=== PATIENT | male | born 1955 | race Caucasian/White ===

== ENCOUNTER → 2024-02-12 10:52 | Outpatient (REF) | payer BC, SELFPAY | LOC: HWRAD 10:52 | PROVIDERS: ATTENDING PHYSICIAN Family Medicine | DX: M25.512 Pain in left shoulder (principal) | CPT/HCPCS: 73030 ==

== ENCOUNTER 2024-02-16 14:04 | Emergency (ER) | payer BC, SELFPAY ==
[2024-02-16 14:24] VITALS: BP 133/84
--- NOTE | 2024-02-16 14:27 | ED.GENMED ---
History of Present Illness
General
Chief Complaint: Skin Surface Trauma
Source: patient
Exam Limitations: none
Time Seen by Provider: 02/16/24 14:27
Nursing documentation reviewed up to this point in time: agreed with
History of Present Illness
History of Present Illness:
Patient presents to ED for evaluation secondary to left forearm injury, which occurred while he was at work this afternoon. 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
scratched by the patient with her nail. Denies any other injuries. Denies loss of sensation or weakness. Denies active bleeding. Patient's tetanus vaccination status is up-to-date.
Past History
Past History
ED Past Medical History: None
ED Past Surgical History: None
Social History
Tobacco: Non-smoker
Drug: None
Personal:
Living: with family
Employment: Employed ( [employer])
Family History
Family History: Other
Review of Systems
Review of Systems
Allergies reviewed?: Yes
All Other Systems: ROS reviewed and negative except as documented in HPI and ROS
Constitutional: Reports no symptoms
EENT: Reports no symptoms
Musculoskeletal: Reports no symptoms
Skin: Reports other (forearm laceration)
Neurological: Reports no symptoms
Phy Exam
Physical Exam
Physical Exam:
Physical Exam
General: no apparent distress, not acutely ill. afebrile
Head: nc/at. eomi
Neck: supple. normal range of motion.
Neuro: alert and oriented. no focal neurological deficits
Skin: multiple superficial laceration noted over volar surface of left mid-forearm, without active bleeding.
Psychiatric: well kept. interactive and cooperative
Extremities: no edema. no calf tenderness.
Course
Vital Signs
Initial and Last Documented VS:
Initial Vital Signs
Temp Pulse Resp BP Pulse Ox
98.0 F 95 16 133/84 96
02/16/24 14:24 02/16/24 14:24 02/16/24 14:24 02/16/24 14:24 02/16/24 14:24
Last Documented Vital Signs
Temp Pulse Resp BP Pulse Ox
98.0 F 95 16 133/84 96
02/16/24 14:24 02/16/24 14:24 02/16/24 14:24 02/16/24 14:24 02/16/24 14:24
MDM/Problems Addressed
MDM/Problems Addressed:
Local wound care provided and dressing applied afterwards. No indication for any suture placement. Pt will f/u with occupational health next week.
*Critical Care Note
Total Time (30-74mins, 75-104mins- exclusive of procedures): Not Applicable
ED Attending Note
-
Portions of this chart may have been created with voice recognition software.� Occasional wrong word or��sound alike� substitutions may have occurred due to the inherent limitations of voice recognition software.
Discharge Plan
Departure
Patient Disposition: Home (Routine Discharge)
Date of Disposition: 02/16/24
Time of Disposition: 14:34
Patient with high blood pressure during this ER visit?: Yes
Discharge Problem:
Superficial laceration
Instructions: Wound Care (DC), Laceration
Prescriptions:
No Action
potassium [Potassium-99] 99 MG tablet
99 mg PO HS
magnesium oxide 500 MG tablet
500 mg PO HS
cholecalciferol (vitamin D3) 1,000 UNITS tablet
1,000 units PO HS
[id number]-[id number] [Triple Antibiotic] 14 GM ointment
1 applic TP DAILY
albuterol sulfate 1 PUFF HFA aerosol inhaler
2 puff inhalation R [id number] PRN (Reason: sob from exercise)
clotrimazole [Clotrimazole AF] 28 GM cream
1 applic TP HS
cyanocobalamin (vitamin B-12) 1,000 MCG tablet
2,000 mcg PO DAILY Qty: 30 0RF
ferrous sulfate [FeroSul] 325 MG tablet
325 mg PO DAILY Qty: 30 0RF
amoxicillin-pot clavulanate 1 TABLET tablet
1 tab PO Q12 Qty: 14 0RF
Referrals:
Jonathan Mancera, [Family Provider] -
Activity Restrictions/Additional Instructions:
As discussed, please follow-up with occupational health for reevaluation next week.
Interventions
Interventions:
*Risk Screen - Suicide Last Done: 02/16/24 14:25
*General Assessment Last Done: 02/16/24 14:24
*Neglect/Abuse Screening Last Done: 02/16/24 14:25
*ED COVID-19 Vaccine History Last Done: 02/16/24 14:24
ED-Skin Assessment Last Done: 02/16/24 14:26
Discharge Date and Time
Print Language: [id number]
== END 2024-02-16 15:30 | disposition home or self-care (01) ==
LOC: EMR 14:04
PROVIDERS: EMERGENCY PHYSICIAN Emergency Medicine; FAMILY PHYSICIAN Family Medicine
DX: S51.812A Laceration without foreign body of left forearm, initial encounter (principal); W50.4XXA Accidental scratch by another person, initial encounter; Y93.89 Activity, other specified; Y92.239 Unspecified place in hospital as the place of occurrence of the external cause; Y99.0 Civilian activity done for income or pay; R03.0 Elevated blood-pressure reading, without diagnosis of hypertension; J45.909 Unspecified asthma, uncomplicated; K90.0 Celiac disease; D64.9 Anemia, unspecified
CPT/HCPCS: 99282

== ENCOUNTER → 2024-04-05 07:35 | Outpatient (REF) | payer BC, SELFPAY ==
[2024-04-05 08:51] LABS: Hematocrit 38.6 % (39.0-52.0); Hemoglobin 13.7 g/dL (13.0-18.0); Mean Corp Hgb Conc. 35.5 g/dL (33.0-37.0); Mean Corpuscular Hgb 31.6 pg (27.0-31.0); Mean Corpuscular Volume 89.1 fL (80.0-94.0); Mean Platelet Volume 9.7 fL (7.4-10.4); Platelet Count 208 10^3/uL (130-400); Red Blood Cell Count 4.33 10^6/uL (4.70-6.10); Red Cell Dist. Width 12.5 % (11.5-14.5); White Blood Cell Count 3.7 10^3/uL (4.8-10.8)
[2024-04-05 09:12] LABS: Blood Urea Nitrogen 26 mg/dl (9-20); Calcium 9.4 mg/dl (8.4-10.2); Carbon Dioxide 28 mmol/L (22-30); Chloride 104 mmol/L (98-107); Glucose 79 mg/dl (70-99); Iron 100 ug/dl (49-181); Magnesium 2.2 mg/dl (1.6-2.3); Potassium 4.9 mmol/L (3.5-5.1); Sodium 137 mmol/L (135-145); eGFR > 60.00
[2024-04-05 09:27] LABS: Vitamin D, 25-OH*** 44.1 ng/mL (30-80)
[2024-04-05 09:40] LABS: PSA, Total - Screen 2.66 ng/ml (0.0-4.0)
[2024-04-05 09:44] LABS: Ferritin 30.7 ng/ml (17.9-464.0)
[2024-04-05 09:58] LABS: Vitamin B12 684 pg/ml (239-931)
[2024-04-05 12:05] LABS: Glycohemoglobin (HgbA1c) 5.2 % (4.0-5.6)
== END ==
LOC: REG 07:35
PROVIDERS: ATTENDING PHYSICIAN Student in an Organized Health Care Education/Training Program
DX: K90.0 Celiac disease (principal)
CPT/HCPCS: 36415; 80048; 82306; 82607; 82728; 83036; 83540; 83735; 85027; G0103

== ENCOUNTER → 2024-06-03 06:40 | Outpatient (REF) | payer BC, SELFPAY ==
[2024-06-03 07:54] LABS: % Basophils 0.8 % (0-2); % Eosinophils 4.7 % (0-6); % Immature Granulocytes 0.3 % (0-0.5); % Lymphocytes 25.3 % (20.5-51.1); % Monocytes 8.9 % (1.7-9.3); Absolute Eosinophils 0.2 10^3/uL (0-0.7); Absolute Monocytes 0.3 10^3/uL (0.1-0.6); Absolute Neutrophils 2.3 10^3/uL (1.4-6.5); Hematocrit 39.4 % (39.0-52.0); Hemoglobin 13.9 g/dL (13.0-18.0); Mean Corp Hgb Conc. 35.3 g/dL (33.0-37.0); Mean Corpuscular Hgb 32.6 pg (27.0-31.0); Mean Corpuscular Volume 92.5 fL (80.0-94.0); Mean Platelet Volume 10.4 fL (7.4-10.4); Nucleated Red Blood Cells % 0 % (-); Platelet Count 176 10^3/uL (130-400); Red Blood Cell Count 4.26 10^6/uL (4.70-6.10); Red Cell Dist. Width 13.2 % (11.5-14.5); White Blood Cell Count 3.8 10^3/uL (4.8-10.8)
== END ==
LOC: REG 06:40
PROVIDERS: ATTENDING PHYSICIAN Student in an Organized Health Care Education/Training Program
DX: E61.1 Iron deficiency (principal); Z00.00 Encounter for general adult medical examination without abnormal findings; E53.8 Deficiency of other specified B group vitamins; E78.2 Mixed hyperlipidemia; K90.0 Celiac disease; Z12.5 Encounter for screening for malignant neoplasm of prostate
CPT/HCPCS: 36415; 85025

== ENCOUNTER → 2024-08-07 06:15 | Outpatient (REF) | payer BC, SELFPAY ==
[2024-08-07 07:26] LABS: % Basophils 0.5 % (0-2); % Eosinophils 5.5 % (0-6); % Immature Granulocytes 0.3 % (0-0.5); % Lymphocytes 30.1 % (20.5-51.1); % Monocytes 9.2 % (1.7-9.3); % Neutrophils 54.4 % (42.2-75.2); Absolute Eosinophils 0.2 10^3/uL (0-0.7); Absolute Lymphocytes 1.2 10^3/uL (1.2-3.4); Absolute Monocytes 0.4 10^3/uL (0.1-0.6); Absolute Neutrophils 2.1 10^3/uL (1.4-6.5); Hematocrit 42.8 % (39.0-52.0); Hemoglobin 14.5 g/dL (13.0-18.0); Mean Corp Hgb Conc. 33.9 g/dL (33.0-37.0); Mean Corpuscular Hgb 31.7 pg (27.0-31.0); Mean Corpuscular Volume 93.7 fL (80.0-94.0); Mean Platelet Volume 10.1 fL (7.4-10.4); Nucleated Red Blood Cells % 0 % (-); Platelet Count 173 10^3/uL (130-400); Red Blood Cell Count 4.57 10^6/uL (4.70-6.10); Red Cell Dist. Width 13.1 % (11.5-14.5); White Blood Cell Count 3.8 10^3/uL (4.8-10.8)
== END ==
LOC: REG 06:15
PROVIDERS: ATTENDING PHYSICIAN Student in an Organized Health Care Education/Training Program
DX: D72.9 Disorder of white blood cells, unspecified (principal)
CPT/HCPCS: 36415; 85025

== ENCOUNTER → 2024-08-26 15:57 | Outpatient (REF) | payer BC, SELFPAY | LOC: PAVMRI 15:57 | PROVIDERS: ATTENDING PHYSICIAN Specialist; FAMILY PHYSICIAN Student in an Organized Health Care Education/Training Program | DX: M25.512 Pain in left shoulder (principal) | CPT/HCPCS: 73221 ==

== ENCOUNTER → 2024-09-30 12:01 | Outpatient (REF) | payer BC, SELFPAY | LOC: CLAB 12:01 | PROVIDERS: Pathology Anatomic Pathology & Clinical Pathology; ATTENDING PHYSICIAN Physician Assistant Medical | DX: L57.0 Actinic keratosis (principal) | CPT/HCPCS: 88305 ==

== ENCOUNTER → 2024-10-09 17:18 | Outpatient (REF) | payer BC, SELFPAY ==
[2024-10-09 18:06] LABS: Iron 72 ug/dl (49-181)
[2024-10-09 18:16] LABS: Percent Saturation 21 % (20-50); Total Iron Binding Capacity 330 ug/dl (261-462)
[2024-10-09 18:32] LABS: Vitamin D, 25-OH*** 28.3 ng/mL (30-80)
[2024-10-09 19:29] LABS: Vitamin B12 657 pg/ml (239-931)
[2024-10-12 00:16] LABS: EBV-EA (D) Ab IgG 63.6 U/mL (0.0-10.9); EBV-VCA IgM Antibodies <10.0 U/mL (0.0-43.9)
[2024-10-12 07:31] LABS: ANA, IgG Reflex to HEp-2 None Detected (None Detected)
== END ==
LOC: REG 17:18
PROVIDERS: ATTENDING PHYSICIAN Physician Assistant Medical
DX: E53.8 Deficiency of other specified B group vitamins (principal); K90.0 Celiac disease; E61.1 Iron deficiency; R53.83 Other fatigue; R68.83 Chills (without fever)
CPT/HCPCS: 36415; 82306; 82607; 83540; 83550; 86038; 86618; 86663; 86664; 86665

== ENCOUNTER 2024-11-21 06:16 | Day surgery (SDC) | payer BC, SELFPAY ==
[2024-11-13 09:09] LABS: Blood Urea Nitrogen 18 mg/dl (9-20); Calcium 9.2 mg/dl (8.4-10.2); Carbon Dioxide 31 mmol/L (22-30); Chloride 99 mmol/L (98-107); Glucose 85 mg/dl (70-99); Potassium 4.5 mmol/L (3.5-5.1); Sodium 135 mmol/L (135-145); eGFR > 60.00
[2024-11-13 13:37] VITALS: BMI 28.5
[2024-11-21 11:19] VITALS: BP 139/72
[2024-11-21 11:29] VITALS: BMI 28.5
[2024-11-21] MEDS: TYLENOL 1000 MG PO (11:33)
[2024-11-21] MEDS: CELEBREX 200 MG PO (11:33)
[2024-11-21] MEDS: NORMOSOL-R/PLASMALYTE-A 1000 IV (11:34)
[2024-11-21 13:26] VITALS: BP 128/64; BP 139/72
[2024-11-21 13:30] VITALS: BP 126/67
[2024-11-21 14:05] VITALS: BP 122/72
[2024-11-21 14:45] VITALS: BP 140/77
[2024-11-21 15:05] VITALS: BP 122/83
== END 2024-11-21 15:20 | disposition short-term general hospital (02) ==
LOC: SDS 06:16
PROVIDERS: ATTENDING PHYSICIAN Specialist; FAMILY PHYSICIAN Student in an Organized Health Care Education/Training Program
DX: M75.102 Unspecified rotator cuff tear or rupture of left shoulder, not specified as traumatic (principal); M75.42 Impingement syndrome of left shoulder
CPT/HCPCS: 29827; 36415; 80048; 93005; C1713

== ENCOUNTER 2024-12-24 13:12 | Outpatient (RCR) | payer BC, SELFPAY | END 2024-12-24 23:59 | disposition home or self-care (01) | LOC: RPT 13:12 | PROVIDERS: ATTENDING PHYSICIAN Physician Assistant Surgical; FAMILY PHYSICIAN Student in an Organized Health Care Education/Training Program | DX: Z47.89 Encounter for other orthopedic aftercare (principal); Z73.6 Limitation of activities due to disability; M25.512 Pain in left shoulder; M62.81 Muscle weakness (generalized); W01.0XXD Fall on same level from slipping, tripping and stumbling without subsequent striking against object, subsequent encounter | CPT/HCPCS: 97010; 97110; 97140; 97161; 97530 ==

== ENCOUNTER 2025-01-22 16:09 | Outpatient (RCR) | payer BC, SELFPAY | END 2025-01-22 23:59 | disposition home or self-care (01) | LOC: RPT 16:09 | PROVIDERS: ATTENDING PHYSICIAN Physician Assistant Surgical; FAMILY PHYSICIAN Student in an Organized Health Care Education/Training Program | DX: Z47.89 Encounter for other orthopedic aftercare (principal); M25.512 Pain in left shoulder; M62.81 Muscle weakness (generalized); Z73.6 Limitation of activities due to disability; W01.0XXD Fall on same level from slipping, tripping and stumbling without subsequent striking against object, subsequent encounter | CPT/HCPCS: 97010; 97110; 97140 ==

== ENCOUNTER 2025-02-19 18:00 | Outpatient (RCR) | payer BC, SELFPAY | END 2025-02-19 23:59 | disposition home or self-care (01) | LOC: RPT 18:00 | PROVIDERS: ATTENDING PHYSICIAN Physician Assistant Surgical; FAMILY PHYSICIAN Student in an Organized Health Care Education/Training Program | DX: Z47.89 Encounter for other orthopedic aftercare (principal); M25.512 Pain in left shoulder; M62.81 Muscle weakness (generalized); Z73.6 Limitation of activities due to disability; W01.0XXD Fall on same level from slipping, tripping and stumbling without subsequent striking against object, subsequent encounter | CPT/HCPCS: 97010; 97110; 97140 ==

== ENCOUNTER 2025-03-26 18:00 | Outpatient (RCR) | payer BC, SELFPAY | END 2025-03-26 19:10 | disposition home or self-care (01) | LOC: RPT 18:00 | PROVIDERS: ATTENDING PHYSICIAN Physician Assistant Surgical; FAMILY PHYSICIAN Student in an Organized Health Care Education/Training Program | DX: Z47.89 Encounter for other orthopedic aftercare (principal); M25.512 Pain in left shoulder; M62.81 Muscle weakness (generalized); Z73.6 Limitation of activities due to disability; W01.0XXD Fall on same level from slipping, tripping and stumbling without subsequent striking against object, subsequent encounter | CPT/HCPCS: 97010; 97110; 97140 ==

== ENCOUNTER 2025-04-23 15:58 | Outpatient (RCR) | payer BC, SELFPAY | END 2025-04-23 23:59 | disposition home or self-care (01) | LOC: RPT 15:58 | PROVIDERS: ATTENDING PHYSICIAN Physician Assistant Surgical; FAMILY PHYSICIAN Student in an Organized Health Care Education/Training Program | DX: Z47.89 Encounter for other orthopedic aftercare (principal); M25.512 Pain in left shoulder; M62.81 Muscle weakness (generalized); Z73.6 Limitation of activities due to disability; W01.0XXD Fall on same level from slipping, tripping and stumbling without subsequent striking against object, subsequent encounter | CPT/HCPCS: 97010; 97110; 97140 ==

== ENCOUNTER 2025-05-07 15:55 | Outpatient (RCR) | payer BC, SELFPAY | END 2025-05-14 13:28 | disposition home or self-care (01) | LOC: RPT 15:55 | PROVIDERS: ATTENDING PHYSICIAN Physician Assistant Surgical; FAMILY PHYSICIAN Student in an Organized Health Care Education/Training Program | DX: Z47.89 Encounter for other orthopedic aftercare (principal); M25.512 Pain in left shoulder; M62.81 Muscle weakness (generalized); Z73.6 Limitation of activities due to disability; W01.0XXD Fall on same level from slipping, tripping and stumbling without subsequent striking against object, subsequent encounter | CPT/HCPCS: 97010; 97110; 97140 ==